=== PATIENT | female | born 2000 | race American Indian/Alaskan Native ===

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

== ENCOUNTER 2021-03-27 08:17 | Day surgery (SDC) | payer OTHER ==
[2021-03-27 09:29] VITALS: BP 107/58
--- NOTE | 2021-03-27 12:27 | Ultrasound Report ---
ULTRASOUND THYROID INDICATION / CLINICAL INFORMATION: LEFT THYROID NODULE. COMPARISON: Ultrasound thyroid from an [facility] facility dated 02/02/2021 FINDINGS: RIGHT LOBE: Size = 5.1 x 1.4 x 1.4 cm. - Echogenicity: Normal. - Vascularity: Normal. - Nodules < 1 cm: None. - Nodules >= 1 cm or Suspicious Nodules: None. LEFT LOBE: Size = 4.0 x 1.1 x 1.4 cm. - Echogenicity: Normal. - Vascularity: Normal. - Nodules < 1 cm: None. - Nodules >= 1 cm or Suspicious Nodules: None. ISTHMUS: No significant abnormality. Thickness = 0.2 cm. - Nodules < 1 cm: None. - Nodules >= 1 cm or Suspicious Nodules: None. LYMPH NODES: No abnormal lymph nodes. The patient complains a bout a palpable nodule in the left occi pital region. Targeted ultrasound in this region demonstrates 1 or 2 benign-appearing lymph nodes wit h normal architecture measuring 5 mm in short axis. PARATHYROID GLANDS: No abnormal parathyroid gland. ADDITIONAL FINDINGS: None. IMPRESSION: Normal thyroid gland. No evidence for left thyroid nodule/mass. I reviewed the previous study from a [facility]. In my opinion, the abnormality measured is not a mass but left thyroid cartilage or arytenoid calcifications. There is certainly no suspicious left thyroid lesion. Ultrasound-guided thyroid biopsy was not performed. These findings were explained to the patient at the time of the ex am. If further evaluation is warranted, CT neck with contrast is recommended. Note: Nodule size based on mean (average) size of 3 dimensions. Note: Nodules < 1 cm do not typically require follow-up or FNA unless there are suspicious features ( LORRAINE, 2015) ACR TI-RADS Thyroid Nodule Recommendations TI-RADS 1 (0 points) -- Benign. No FNA or follow-up. TI-RADS 2 (1-2 points) -- Not suspicious. No FNA or follow-up. TI-RADS 3 (3 points) -- Mildly suspicious. Follow up in 1 year if 1.5 cm. FNA if 2.5 cm. TI-RADS 4 (4-6 points) -- Moderately suspicious. Follow up in 1 year if 1.0 cm. FNA if 1.5 cm. TI-RADS 5 (7+ points) -- Highly suspicious. Follow up in 1 year if 0.5 cm. FNA if 1.0 cm. Signer Name: Farooq Marquis Jr, MD Signed: 03/27/2021 12:22 PM Workstation Name: [id number]
== END 2021-03-27 11:20 | disposition home or self-care (01) ==
LOC: CATHLABREC 08:17 → US 08:17 → EDSTATUS 09:00 → CATHLABREC 11:20
PROVIDERS: ATTEND Surgery
DX: E04.1 Nontoxic single thyroid nodule (principal)
CPT/HCPCS: 36415; 76536; 84443

== ENCOUNTER 2021-10-15 13:03 | Outpatient (CLI) | payer OTHER ==
[2021-10-15 13:32] VITALS: BP 111/70
--- NOTE | 2021-10-15 16:40 | Ultrasound Report ---
ULTRASOUND BIOPHYSICAL PROFILE INDICATION / CLINICAL INFORMATION: c/o [facility] COMPARISON: None available. FINDINGS: BREATHING MOVEMENT = 2 GROSS BODY MOVEMENT = 2 TONE = 2 QUALITATIVE AMNIOTIC FLUID VOLUME = 2 TOTAL BIOPHYSICAL SCORE = 05/03 PRESENTATION: Cephalic. HEART RATE (beats per minute): 137 IMPRESSION: 1. biophysical profile = 05/03 Signer Name: Carroll De La Cruz MD Signed: 10/15/2021 4:36 PM Workstation Name: [id number]
--- NOTE | 2021-10-16 06:52 | Ultrasound Report ---
ULTRASOUND OBSTETRIC LIMITED, 10/15/21 5:00 PM INDICATION / CLINICAL INFORMATION: JARRED. - Clinical Gestational Age (GA) in weeks, days: 36, 6 TECHNIQUE: Transabdominal. COMPARISON: 10/15/21 4:08 PM FINDINGS: HEART RATE (beats per minute): 134 AMNIOTIC FLUID INDEX (cm) = 9.4 (normal = 7-24 cm) PRESENTATION: Cephalic. ADDITIONAL FINDINGS: None. IMPRESSION: 1. Normal amniotic fluid index of 9.4 cm. Signer Name: Jose Luis Jones MD Signed: 10/16/2021 6:48 AM Workstation Name: [id number]
== END 2021-10-15 17:25 | disposition home or self-care (01) ==
LOC: TRG 13:03 → APU 13:05 → TRG 17:25
PROVIDERS: ATTEND Obstetrics & Gynecology
DX: O42.913 Preterm premature rupture of membranes, unspecified as to length of time between rupture and onset of labor, third trimester (principal); Z3A.36 36 weeks gestation of pregnancy
CPT/HCPCS: 36415; 59025; 76815; 76819; 84112

== ENCOUNTER 2021-10-17 08:01 | Outpatient (CLI) | payer OTHER ==
[2021-10-17 08:39] VITALS: BP 127/81
[2021-10-17 10:02] LABS: Bacteria,Urine 1+ /HPF (Negative); Bilirubin,Urine NEG (Negative); Blood,Urine NEG (Negative); Color,Urine Yellow (Yellow); Mucus,Urine FEW /HPF; Protein,Urine <15 mg/dL mg/dL (Negative); Urobilinogen,Urine < 2.0 mg/dL (<2.0); WBC,Urine < 1.0 /HPF (0.0-6.0)
== END 2021-10-17 10:44 | disposition home or self-care (01) ==
LOC: TRG 08:01 → APU 08:14 → TRG 10:44
PROVIDERS: ATTEND Obstetrics & Gynecology
DX: O62.9 Abnormality of forces of labor, unspecified (principal); Z3A.37 37 weeks gestation of pregnancy
CPT/HCPCS: 59025; 81001